=== PATIENT | male | born 1995 | race Caucasian/White ===

== ENCOUNTER → 2019-01-04 13:34 | Outpatient (CLI) | payer BC, SELFPAY ==
[2019-01-04 14:22] LABS: Basophils # 0.1 K/mm3 (0-0.2); Basophils % 0.9 % (0.1-2.0); Eosinophils # 0.2 K/mm3 (0.0-0.4); Eosinophils % 3.3 % (0.1-12.0); Hemoglobin 13.3 g/dL (14.1-18.0); Lymphocytes # 1.4 K/mm3 (0.7-4.5); Lymphocytes % 25.1 % (10-50); Mean Corpuscular HGB Conc 32.5 g/dL (31.8-35.4); Mean Corpuscular Hemoglobin 30.5 pg (27.0-31.2); Mean Corpuscular Volume 93.9 fl (80-94); Mean Platelet Volume 7.4 fl (7.4-10.4); Monocytes # 0.4 K/mm3 (0.1-1.0); Monocytes % 7.9 % (1.7-9.3); Neutrophils # 3.5 K/mm3 (1.8-7.8); Neutrophils % 62.8 % (37.0-80.0); Platelet Count 277 K/mm3 (142-424); Red Blood Count 4.37 M/mm3 (4.60-6.20); Red Cell Distribution Width 13.5 % (11.5-17.5); White Blood Count 5.5 K/mm3 (4.8-10.8)
[2019-01-04 16:14] LABS: Alanine Aminotransferase 33 U/L (12-78); Albumin Level 4.4 gm/dL (3.4-5.0); Albumin/Globulin Ratio 1.3 (1.1-1.8); Alkaline Phosphatase 113 U/L (46-116); Anion Gap 15.4 mEq/L (5-15); Aspartate Amino Transferase 15 U/L (15-37); Bilirubin,Total 0.2 mg/dL (0.2-1.0); Blood Urea Nitrogen 10 mg/dL (7-18); Calcium 9.3 mg/dL (8.5-10.1); Carbon Dioxide 28 mmol/L (21.0-32.0); Chloride 104 mmol/L (98-107); Creatinine,Serum 0.71 mg/dL (0.70-1.30); Estimated Glomerular Filt Rate 137 ml/min (>60); GFR (African American) 166 ML/MIN (>60); Globulin 3.5 gm/dl (1.3-3.2); Glucose 84 mg/dL (74-106); Potassium 4.4 mmoL/L (3.5-5.1); Sodium 143 mmol/L (136-145); Total Protein,Serum 7.9 gm/dL (6.4-8.2)
[2019-01-06 07:16] LABS: Hep A Ab, IgM Negative (Negative); Hepatitis B Core Antibody IgM Negative (Negative); Hepatitis B Surface Antigen Negative (Negative)
[2019-01-06 07:49] LABS: Hepatitis C Antibody >11.0 s/co ratio (0.0-0.9)
[2019-01-06 12:10] LABS: HIV Screen 4th Generation wRfx Non Reactive (Non Reactive)
== END ==
PROVIDERS: Visit Provider Internal Medicine
DX: F11.20 Opioid dependence, uncomplicated (principal); Z79.899 Other long term (current) drug therapy
CPT/HCPCS: 36415; 80053; 80074; 85025; 86703; G0432

== ENCOUNTER 2021-05-07 13:19 | Emergency (ER) | payer BC, SELFPAY ==
[2021-05-07 13:45] VITALS: BP 136/87; PULSE 109; RESP 18; TEMP 36.7; O2SAT 100; BMI 16.7
[2021-05-07 13:56] VITALS: BP 117/84; PULSE 104; RESP 18; TEMP 36.6
--- NOTE | 2021-05-07 14:05 | XR_ITS ---
PROCEDURE: XR HIP LT 2-3V W/PELVIS CLINICAL INDICATION: fall, left hip pain COMPARISON: No exams were available for comparison FINDINGS: No fracture or dislocation is evident. No significant degenerative change. No lytic or blastic change. Unremarkable soft tissues. There is presumed catheter tubing which projects along the left lateral abdomen and across the left iliac crest. IMPRESSION: No acute fracture or dislocation of the pelvis or hips. Dictated by: Tu Carrasco MD 05/07/2021 14:41 Tu Carrasco MD in [place] 05/07/2021 14:41
--- NOTE | 2021-05-07 14:58 | [facility].EDFALL ---
ED Disposition Clinical Impression: Hip pain, acute Disposition: Home, Self-Care Condition on Discharge: Fair Prescriptions: Baclofen [Lioresal 10mg tablet] 10 mg PO Q8 PRN #10 tab PRN Reason: Muscle Spasm Prescription Printed Referrals: Saritha Escamilla [Primary Care Provider] - - Critical Care Critical Care Time: No Attestation: On 05/07/21, the high probability of a clinically significant, sudden or life threatening deterioration of the following system(s) required my full and direct attention, intervention and personal management. The time I documented below is in addition to time spent performing reported procedures but includes the following listed in this critical care notation. Medical Decision Making - Medical Records Medical records reviewed: Yes: I reviewed the patient's medical records. - Mihai Inquiry Pt receiving controlled substance: No Vital Signs: 05/07/21 13:45 Temperature 98.1 F Temperature Source Oral Pulse Rate [Right] 109 H Respiratory Rate 18 Blood Pressure [Right Arm] 136/87 Blood Pressure Mean [Right Arm] 103 Blood Pressure Source [Right Arm] Automatic Cuff Blood Pressure Position [Right Arm] Sitting 02 Sat by Pulse Oximetry 100 - Lab Data Lab results reviewed: Yes: I reviewed the patient's lab results. Orders (Tests/Meds): ED MEDICATIONS Discontinued Medications Generic Name Dose Route Start Last Admin Trade Name Freq PRN Reason Stop Dose Admin Sodium Chloride 500 mls @ 999 mls/hr 05/07/21 14:15 05/07/21 14:44 Sod Chlor 0.9% 1000ml Bag IV 05/07/21 14:45 Not Given .Q31M LES Sodium Chloride 1,000 mls @ 999 mls/hr 05/07/21 14:45 05/07/21 14:45 Sod Chlor 0.9% 1000ml Bag IV 05/07/21 15:45 999 mls/hr .Q1H1M LES Administration Ketorolac Tromethamine 15 mg 05/07/21 14:05 05/07/21 15:22 Ketorolac 30mg/Ml Vial IV 05/07/21 14:06 Not Given ONCE ONE Ketorolac Tromethamine 30 mg 05/07/21 15:20 05/07/21 16:01 Ketorolac 30mg/Ml Vial IM 05/07/21 15:21 30 mg ONCE ONE Administration Methocarbamol 1,000 mg 05/07/21 14:10 05/07/21 14:41 Methocarbamol 500mg Tablet PO 05/07/21 14:11 1,000 mg ONCE ONE Administration ORDERS Category Date Time Status Complete Blood Count Auto Diff Stat Lab 05/07/21 14:05 Ordered Comprehensive Metabolic Panel Stat Lab 05/07/21 14:05 Ordered Creatine Kinase Stat Lab 05/07/21 14:05 Ordered Blood Culture Stat Micro 05/07/21 14:05 Ordered Medical Decision Narrative: Patient hemodynamically stable in no acute distress. Reports diffuse muscle cramping and does have recent history of IV drug abuse with history of bacteremia and endocarditis. Also reports fall. Differential diagnosis includes rhabdomyolysis versus acute on chronic muscle spasticity versus left hip fracture. Blood cultures also obtained just to make sure that the patient is not bacteremic, patient can follow-up on these pending negative work-up otherwise. Made to get blood work, however patient is a very hard stick. Multiple tried including lab. Patient has history of IV drug abuse which makes this very difficult. Patient would not like to try an ultrasound IV, decision made to forego labs given improvement in pain with medicine and negative x-ray. Patient advised that if he symptoms continue he should follow-up with his primary care doctor and have the labs attempted again. Return indications reviewed. Fall HPI - General Chief Complaint: Fall Stated Complaint: ao 05/07/21 fall pain in back, hips, legs Time Seen by Provider: 05/07/21 14:58 Mode of Arrival: Ambulatory Limitations: No Limitations Description of Symptoms (Recalled from ER Triage Doc. by RN): pt states he fell this morning upon trying to enter the shower around 0400. 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 he states before the fall that he was having more cramping in his hips and legs than most days. pt c/o lower back, L hip and upper leg pain and cramping.
[2021-05-07 15:00] VITALS: BP 151/96; PULSE 107; RESP 18; TEMP 36.6
[2021-05-07 16:46] VITALS: BP 127/83; PULSE 90; RESP 18; TEMP 36.7
== END 2021-05-07 16:48 | disposition home or self-care (01) ==
PROVIDERS: Emergency Provider Emergency Medicine; PCP Physician Assistant
DX: M25.552 Pain in left hip (principal); F17.210 Nicotine dependence, cigarettes, uncomplicated; W18.2XXA Fall in (into) shower or empty bathtub, initial encounter; Y92.012 Bathroom of single-family (private) house as the place of occurrence of the external cause
CPT/HCPCS: 73502; 96372; 99282